=== PATIENT | male | born 1975 | race Caucasian/White ===

== ENCOUNTER 2016-07-11 15:42 | Inpatient (IN) | payer OTHER, MEDICARE ==
[~2016-07-11] VITALS: Ht 180.3 cm; Wt 88.6 kg
--- NOTE | 2016-07-11 15:54 | NUR ---
RECEIVED 41 YO MALE WITH HX OF DEPRESSION, BIOPOLAR AND OCD, C/O SUICIDAL IDEATION SINCE LAST FRIDAY. PT STATES HE ALMOST COMMITTED SUICIDE FRIDAY. PT'S PLAN IS TO OVERDOSE ON PILLS.
--- NOTE | 2016-07-11 16:17 | NUR ---
APPRECIATE TRIAGE NOTE. PT AMBULATORY TO ROOM 15. PT ALERT AD ORIENTED X3, CALM AND COOPERATIVE WITH WANDING, CHANGING, AND COLLECTION OF VALUABLES. BLOOD DRAWN AND SENT TO LAB.
[2016-07-11 16:25] LABS: ABSOLUTE BASOPHIL COUNT 0.1 /CUMM (0.0-0.2); ABSOLUTE EOSINOPHIL COUNT 0.2 /CUMM (0.0-0.7); ABSOLUTE GRANULOCYTE CT 7.2 /CUMM (1.4-6.5); ABSOLUTE LYMPH COUNT 1.6 /CUMM (1.2-3.4); ABSOLUTE MONOCYTE COUNT 0.8 /CUMM (0.10-0.60); BASOPHIL % 0.7 % (0.0-2.0); EOSINOPHIL % 2.5 % (0-5); GRANULOCYTE % 72.7 % (42.2-75.2); MEAN CORPUSCULAR HGB 19.4 PG (27.0-31.0); MEAN CORPUSCULAR HGB CONC 30.4 G/DL (33.0-37.0); MEAN CORPUSCULAR VOLUME 63.8 FL (80.0-94.0); MEAN PLATELET VOLUME 7.1 FL (7.4-10.4); PLATELET COUNT 268 /CUMM (130-400); RBC DISTRIBUTION WIDTH 19.1 % (11.5-14.5); RED BLOOD CELL CT 5.18 /CUMM (4.70-6.10)
[2016-07-11] MEDS ORDERED: DEPAKOTE ER500 M1 PO (16:36)
[2016-07-11] MEDS ORDERED: LEXAPRO5 M1 PO (16:36)
[2016-07-11] MEDS ORDERED: WELLBUTRIN XL150 M2 PO (16:36)
[2016-07-11] MEDS ORDERED: RISPERIDONE0.5 M1 PO (16:37)
--- NOTE | 2016-07-11 16:59 | ED PSYCHIATRIC COMPLAINT ---
History of Present Illness General Chief Complaint: Psychiatric Related Complaint Stated Complaint: SUICIDAL Source: patient Exam Limitations: no limitations Vital Signs & Intake/Output Vital Signs & Intake/Output Vital Signs Date Time Temp Pulse Resp B/P Pulse O2 O2 Flow FiO2 Ox Delivery Rate 07/11 1616 97.0 100 120/71 07/11 1549 97.1 116 18 125/75 97 Room Air Allergies Coded Allergies: almond (ANAPHYLAXIS 07/11/16) Uncoded Allergies: FRUITS (ANAPHYLAXIS- STONE FRUITS 07/11/16) Reconcile Medications Bupropion HCl (Wellbutrin XL) 150 MG TAB.ER.24H 1 TAB PO QAM MENTAL HEALTH ( Reported) Divalproex Sodium (Depakote ER) 500 MG TAB.ER.24H 2,000 MG PO QHS MENTAL HEALTH (Reported) Escitalopram Oxalate (Lexapro) 5 MG TABLET 1 TAB PO DAILY MENTAL HEALTH ( Reported) Risperidone 0.5 MG TABLET 1 TAB PO QPM MENTAL HEALTH (Reported) Triage Note: RECEIVED 41 YO MALE WITH HX OF DEPRESSION, BIOPOLAR AND OCD, C/O SUICIDAL IDEATION SINCE LAST FRIDAY. PT STATES HE ALMOST COMMITTED SUICIDE FRIDAY. PT'S PLAN IS TO OVERDOSE ON PILLS. Triage Nurses Notes Reviewed? yes HPI: Patient presents for evaluation of constant severe feelings of detachment towards his family that began number of weeks ago. Symptoms are getting worse and there is nothing that seems to make him feel better including the use of marijuana. He states that he planned to commit suicide on Friday by taking a handful of pills but did not actually go through with it. He continues to have suicide ideation but states he is rather ambivalent to this. Other than marijuana patient denies any other drug use or alcohol use. (VIRGIL HSIEH MD) Past History Travel History Traveled to [place] past 21 day No Medical History Any Pertinent Medical History? 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 No (VIRGIL HSIEH MD) Review of Systems Review of Systems Constitutional: Reports: no symptoms. EENTM: Reports: no symptoms. Respiratory: Reports: no symptoms. Cardiovascular: Reports: no symptoms. GI: Reports: no symptoms. Genitourinary: Reports: no symptoms. Musculoskeletal: Reports: no symptoms. Skin: Reports: no symptoms. Neurological/Psychological: Reports: see HPI. Hematologic/Endocrine: Reports: no symptoms. Immunologic/Allergic: Reports: no symptoms. All Other Systems: Reviewed and Negative (JORI GONZALEZ,VIRGIL Aguialr) Physical Exam Physical Exam General Appearance: SEE BELOW Neurological/Psychiatric: SEE BELOW Comments: Gen.: Well-nourished, well-developed, no acute respiratory distress. Head: Normocephalic, atraumatic. Eyes: Normal inspection bilaterally Ears: Normal inspection bilaterally Nose: Normal inspection Throat/mouth : Moist mucosa Neck: Supple, full range of motion, no goiter Heart: Regular rate and rhythm, no murmurs rubs or gallops Lungs: Clear to auscultation bilaterally with normal air entry Chest: Nontender Back: Normal range of motion Abdomen: Soft, nontender, nondistended, normal bowel sounds Extremities: Normal range of motion grossly, equal radial pulses, no cyanosis clubbing or edema Neurologic: Cranial nerves grossly intact, speech is clear Skin: warm and dry Psychiatric: Calm, cooperative, no apparent delusions or hallucinations, subdued affect SAD PERSONS Done? deferred to crisis (JORI GONZALEZ,VIRGIL Aguilar) Progress Differential Diagnosis: depression, bipolar disorder Plan of Care: Orders Procedure Date/time Status Regular Diet 07/12 B Active THYROID STIMULATING HORMONE 07/12 0700 Active LIPID PANEL 07/12 0700 Active GLYCOSYLATED HGB 07/12 0700 Active VITAMIN B12 07/12 0700 Active EKG 07/12 0700 Active Add-on Test (ER Only) 07/11 1950 Active Patient Data - inpatient psych 07/11 1928 Active Admit to inpatient psych 07/11 1928 Active ED CRISIS PSYCH CONSULT 07/11 1658 Active DEPAKOTE LEVEL 07/11 1617 Active URINE DRUGS OF ABUSE 07/11 1614 Complete ETHANOL 07/11 1614 Active COMPREHENSIVE METABOLIC PANEL 07/11 1614 Active CBC WITHOUT DIFFERENTIAL 07/11 1614 Complete Vital Signs 07/11 UNK Active Activity/Ambulation 07/11 UNK Active Current Medications Sig/Genie Start time Last Medication Dose Stop Time Status Admin Bupropion HCl 150 MG DAILY 07/12 1000 UNVr (Wellbutrin XL) Escitalopram Oxalate 5 MG DAILY 07/12 1000 UNVr (Lexapro) Divalproex Sodium 2,000 MG AT BEDTIME 07/11 2200 UNVr (Depakote ER) Risperidone 0.5 MG AT BEDTIME 07/11 220 UNVr (Risperidone) Laboratory Tests 07/11/16 1628: Urine Opiates Screen < 100.00, Methadone Screen 47, Barbiturate Screen < 60, Ur Phencyclidine Scrn < 6.00, Amphetamines Screen 466, U Benzodiazepines Scrn < 85, Urine Cocaine Screen < 50, Urine Cannabis Screen 40.80 07/11/16 1617: Anion Gap 12, Estimated GFR > 60, BUN/Creatinine Ratio 12.5, Glucose 94, Calcium 9.3, Total Bilirubin 0.4, AST 14 L, ALT 30, Alkaline Phosphatase 70, Total Protein 6.9, Albumin 3.7, Globulin 3.2, Albumin/Globulin Ratio 1.2, CBC w Diff NO MAN DIFF REQ, RBC 5.18, MCV 63.8 L, MCH 19.4 L, RDW 19.1 H, MPV 7.1 L, Gran % 72.7, Lymphocytes % 16.4 L, Monocytes % 7.7, Eosinophils % 2.5, Basophils % 0.7, Absolute Granulocytes 7.2 H, Absolute Lymphocytes 1.6, Absolute Monocytes 0.8 H, Absolute Eosinophils 0.2, Absolute Basophils 0.1, PUBS MCHC 30.4 L, Valproic Acid Pending, Serum Alcohol < 10.0 Comments: 07/11/2016 7:17:57 PM patient signed out to Dr. Mabry. (JORI GONZALEZ,VIRGIL Aguilar) Comments: To be admitted to [facility]. (MARIO ALBERTO MABRY MD) Departure Departure Disposition: STILL A PATIENT Condition: Stable Clinical Impression Primary Impression: Suicide ideation Referrals: TREVIN MOTTA DO (PCP/Family) Departure Forms: Customer Survey General Discharge Information (JORI GONZALEZ,VIRGIL Aguilar) Departure Time of Disposition: 1956 Psych Admission Note Psychiatric Admission: I have seen and evaluated HERNANDEZ HYDE. I have also reviewed all the pertinent lab results and diagnostic results. HERNANDEZ HYDE will be admitted to our inpatient Psychiatric unit for treatment and care. (MARIO ALBERTO MABRY MD)
--- NOTE | 2016-07-11 17:11 | NUR ---
DR. HSIEH TO BEDSIDE FOR EVAL.
--- NOTE | 2016-07-11 18:22 | ED PSY CRISIS COLLATERAL NOTE ---
Collateral Note Collateral Note Family/Inform/Yamila Contacts: This clinician received a call from [facility] outpatient DRAWING TENDER Fiona Welch. She reported the Pt is has very risky behavior and attempted suicide on Friday night by taking pills and then washing the pills down with cough syrup. She reports the Pt called with active suicide ideation. She reports the Pt had protective factor of his children in the past and recently reports being detached from his family. She reports the Pt has a current stressor of in the process of a divorce. She reports the Pt abuses Cannabis and having a diagnoses of Bipolar.
--- NOTE | 2016-07-11 19:18 | ED PSYCH CRISIS CONSULTATION ---
Crisis Consult Basic Assessment Date of Consult: 07/11/16 Responsible Person/Accompanied By: Self Insurance Authorization: Insurance #1: Insurance name: MEDICARE A Phone number: Policy number: [id number] Group number: Authorization number: ED Provider: Patient's ED Provider: VIRGIL HSIEH MD Primary Care Physician: Patient's PCP: TREVIN MOTTA DO PCP's Current Psychiatrist: Dr. Saira Tobias Chief Complaint: Psychiatric Related Complaint Patient's Quote: " I want to kill myself" " I will take pills" Present Illness: Pt is a 41 male going through a divorce presents to the emergency room after talking with his COMPLIANCE TESTING ANALYST Fiona Welch at [facility]. He informed the COMPLIANCE TESTING ANALYST he attempted suicide on Friday by taking pills and drinking cough syrup. He reported spitting out the pills. He then came into the emergency room and reports feeling depressed, sad and hopeless. He reports his depression increased since March of 2016. Pt reports having suicidal ideation with a plan to take pills. He reports regretting not being able to go through with previous attempt on Friday. Pt reports he fantasies of dying and the thought of leaving this world. He reports writing letters to his children and unable to provide them to his children. Pt has a history of abusing Cannabis and reports last use 2 weeks ago. Patient's Address: [address] [place] [address] Other Phone Number: Who Do You Live With? Father Family/Informants Interviewed: COMPLIANCE TESTING ANALYST Fiona Welch Allergies - Coded Allergies: almond (ANAPHYLAXIS 07/11/16) Uncoded Allergies: FRUITS (ANAPHYLAXIS- STONE FRUITS 07/11/16) Current Medications - Scheduled Medications Bupropion HCl (Wellbutrin XL) 150 MG TAB.ER.24H 1 TAB PO QAM MENTAL HEALTH #30 (Reported) Entered as Reported by LATONYA SNEED on 07/11/16 1636 Divalproex Sodium (Depakote ER) 500 MG TAB.ER.24H 2,000 MG PO QHS MENTAL HEALTH #120 (Reported) Entered as Reported by LATONYA SNEED on 07/11/16 1636 Escitalopram Oxalate (Lexapro) 5 MG TABLET 1 TAB PO DAILY MENTAL HEALTH #30 ( Reported) Entered as Reported by LATONYA SNEED on 07/11/16 1636 Risperidone 0.5 MG TABLET 1 TAB PO QPM MENTAL HEALTH #30 (Reported) Entered as Reported by LATONYA SNEED on 07/11/16 1637 Laboratory Results: Laboratory Tests 07/11/16 1628: Urine Opiates Screen < 100.00, Methadone Screen 47, Barbiturate Screen < 60, Ur Phencyclidine Scrn < 6.00, Amphetamines Screen 466, U Benzodiazepines Scrn < 85, Urine Cocaine Screen < 50, Urine Cannabis Screen 40.80 07/11/16 1617: Anion Gap 12, Estimated GFR > 60, BUN/Creatinine Ratio 12.5, Glucose 94, Calcium 9.3, Total Bilirubin 0.4, AST 14 L, ALT 30, Alkaline Phosphatase 70, Total Protein 6.9, Albumin 3.7, Globulin 3.2, Albumin/Globulin Ratio 1.2, CBC w Diff NO MAN DIFF REQ, RBC 5.18, MCV 63.8 L, MCH 19.4 L, RDW 19.1 H, MPV 7.1 L, Gran % 72.7, Lymphocytes % 16.4 L, Monocytes % 7.7, Eosinophils % 2.5, Basophils % 0.7, Absolute Granulocytes 7.2 H, Absolute Lymphocytes 1.6, Absolute Monocytes 0.8 H, Absolute Eosinophils 0.2, Absolute Basophils 0.1, PUBS MCHC 30.4 L, Serum Alcohol < 10.0 Past History Past Medical History Neurological: NONE EENT: NONE Cardiovascular: NONE Respiratory: NONE Gastrointestinal: NONE Hepatic: NONE Musculoskeletal: NON CANCEROUS 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 Psychiatric Treatment History Psych Treatment Psychiatric Treatment Yes Inpatient Treatment Yes Outpatient Treatment Yes Location of Treatment [facility] Outpatient Reason for Treatment Bipolar Dates of Treatment curresntly treated in outptient . Response to Treatment poor Diagnosis by History: Bipolar Disorder Substance Use/Abuse History Drug Use/Abuse Substances Used/Abused Yes Substance Used/Abused Marijuana First Use 17 years old Last Used 2 weeks ago How much used/taken a few hits. How often daily. For how long 3 years Route of use smoking Substance Abuse Treatment Substance Abuse Treatment Past Substance Abuse [place] No Inpatient Treatment No Outpatient Treatment No Comments: Pt presents to the emergency room depressed with suicidal ideation with a plan to take pills and overdose. Current Mental Status Mental Status Orientation: Person, Place, Situation Affect: Depressed, Hopeless, Lonely, Sad Speech: WNL Neuro-vegetative: Appetite Decreased, Energy Decreased Appearance Appearance- Dress/Hygiene: Dressed in hospital clothing. Behaviors Thought Process: WNL Thought Content: WNL Memory: WNL Insight: Poor SI/HI Risk Assessment Past Suicidal Ideation/Attempts Yes Current Suicidal Ideation/Att Yes Past Homicidal Ideation/Att: No Current Homicidal Ideation/Attempts No Degree of Intent: Made Preparations, Plan, States Intent Danger To: Self Gravely Disabled: Lack of Insight, Poor Impulse Control, Poor Judgment Risk Factors: SA/MH hospitalized, substance abuse, poor impulse control, lack of outcome concern, male Lethality Ratin PTSD Checklist PTSD Score: PTSD Score: Response Value Disturbing memories,thoughts,images of stressful experience? Not at all 1 Disturbing dreams of stressful experience from past? Not at all 1 Suddenly acting/feeling as if reliving stressful experience? Not at all 1 Total 3 PTSD Done? patient declined ED Management Sitter: Yes Restraints: No DSM5/PS Stressors/Medical Prob Diagnosis' (DSM 5, Stressors, Medical): Bipolar Disorder, current episode depressed F31.32 Current GAF: 23 Comments: Pt presents to the emergency room depressed, hopeless and sad with a plan to overdose by taking pills. Departure Disposition Psych Medical Clearance Date: 07/11/16 Medically Cleared at: 1720 Time Started: 1720 Time Ended: 1820 Psychiatrist Consulted: Dr. Saira Tobias Date Disposition Established: 07/11/16 Time Disposition Established: 1840 Plan for Disposition - Modality: Inpatient Psychiatry Facility: [facility] Follow-up Appt Date: 07/11/16 Rationale for Disposition: Pt presents to the emergency room depressed, sad, hopeless with suicide ideation plan to overdose with pills, consulted with Dr. Saira Tobias for the Pt to be treated inpatient at [facility]. Type of IP Admission: Voluntary Referrals TREVIN MOTTA DO (PCP/Family)
--- NOTE | 2016-07-11 19:34 | IP CRISIS DIAG ASSESS PSYCH ---
See Addendum Diagnostic Assessment Basic Assessment Insurance Authorization: Insurance #1: Insurance name: MEDICARE A Phone number: Policy number: [id number] Group number: Authorization number: Primary Care Physician: Patient's PCP: TREVIN MOTTA DO PCP's Patient's Quote: " I want to kill myself" " I will takepills" Present Illness: Pt is a 41 male going through a divorce presents to the emergency room after talking with his RELIABILITY TECHNICIAN Fiona Welch at [facility]. He informed the RELIABILITY TECHNICIAN he attempted suicide on Friday by taking pills and drinking cough syrup. He reported spitting out the pills. He then came into the emergency room and reports feeling depressed, sad and hopeless. He reports his depression increased since March of 2016. Pt reports having suicidal ideation with a plan to take pills. He reports regretting not being able to go through with previous attempt on Friday. Pt reports he fantasies of dying and the thought of leaving this world. He reports writing letters to his children and unable to provide them to his children. Pt has a history of abusing Cannabis and reports last use 2 weeks ago. Patient's Address: [address] [place] [address] Other Phone Number: Who Do You Live With? Father Feel Safe Where You Live? Yes Feel Safe in Your Relationship Yes Marital Status: going through a divorce Do You Have Children? Yes Ages? 4,5,14 and 15 Primary Language? Azerbaijani Language(s) Spoken At Home: Azerbaijani Family/Informants Interviewed: RELIABILITY TECHNICIAN Fiona Welch Allergies - Coded Allergies: almond (ANAPHYLAXIS 07/11/16) Uncoded Allergies: FRUITS (ANAPHYLAXIS- STONE FRUITS 07/11/16) Current Medications - Scheduled Medications Bupropion HCl (Wellbutrin XL) 150 MG TAB.ER.24H 1 TAB PO QAM MENTAL HEALTH #30 (Reported) Entered as Reported by LATONYA SNEED on 07/11/16 1636 Divalproex Sodium (Depakote ER) 500 MG TAB.ER.24H 2,000 MG PO QHS MENTAL HEALTH #120 (Reported) Entered as Reported by LATONYA SNEED on 07/11/16 1636 Escitalopram Oxalate (Lexapro) 5 MG TABLET 1 TAB PO DAILY MENTAL HEALTH #30 ( Reported) Entered as Reported by LATONYA SNEED on 07/11/16 1636 Risperidone 0.5 MG TABLET 1 TAB PO QPM MENTAL HEALTH #30 (Reported) Entered as Reported by LATONYA SNEED on 07/11/16 1637 Lab Results: Laboratory Tests 07/11/16 1628: Urine Opiates Screen < 100.00, Methadone Screen 47, Barbiturate Screen < 60, Ur Phencyclidine Scrn < 6.00, Amphetamines Screen 466, U Benzodiazepines Scrn < 85, Urine Cocaine Screen < 50, Urine Cannabis Screen 40.80 07/11/16 1617: Anion Gap 12, Estimated GFR > 60, BUN/Creatinine Ratio 12.5, Glucose 94, Calcium 9.3, Total Bilirubin 0.4, AST 14 L, ALT 30, Alkaline Phosphatase 70, Total Protein 6.9, Albumin 3.7, Globulin 3.2, Albumin/Globulin Ratio 1.2, CBC w Diff NO MAN DIFF REQ, RBC 5.18, MCV 63.8 L, MCH 19.4 L, RDW 19.1 H, MPV 7.1 L, Gran % 72.7, Lymphocytes % 16.4 L, Monocytes % 7.7, Eosinophils % 2.5, Basophils % 0.7, Absolute Granulocytes 7.2 H, Absolute Lymphocytes 1.6, Absolute Monocytes 0.8 H, Absolute Eosinophils 0.2, Absolute Basophils 0.1, PUBS MCHC 30.4 L, Serum Alcohol < 10.0 Toxicology Screen Completed? Yes Results: negative Past History Past Medical History Medical History: Psychiatric history Abuse/Trauma History Trauma History/Current Trauma: emotional (going through a a divorce) Patient's Age at Time of Trauma: 41 History of Trauma/Abuse Treatment? Yes Abuse/Trauma Treatment: None Legal History Current Legal Status: none Have you ever been arrested? No Number of Arrests: [address] Dates: none Physical Integration Practitioner none Psychosocial History Strengths/Capabilities: Pt seeking treatment. Psychiatric Treatment History Psych Treatment Psychiatric Treatment Yes Inpatient Treatment Yes Outpatient Treatment Yes Location of Treatment [facility] Outpatient Reason for Treatment Bipolar Disorder [facility]ates [facility] Response to Treatment poor Diagnosis by History: Bipolar Disorder Risk Factors: SA/MH hospitalized, substance abuse, poor impulse control, lack of outcome concern, male Substance Use/Abuse History Drug Use/Abuse minimum 12mo Hx Substances Used/Abused Yes Substance Used/Abused Marijuana First Use 17 years old Last Used 2 weeks ago How much used/taken a few hits. How often daily. For how long 3 years Route of use smoking Substance Abuse Treatment Substance Abuse Treatment Past Substance Abuse [place] No Inpatient Treatment No Outpatient Treatment No Sexual History Sexually Active Yes # of partners 1 Sexual Orientation Heterosexual Use of Protection No Sexual Concerns: None Education History Highest Level of Education: high school/GED Preferred Learning Style: auditory Current Mental Status Mental Status Orientation: Person, Place, Situation Affect: Depressed, Hopeless, Lonely, Sad Speech: WNL Neuro-vegetative: Appetite Decreased, Energy Decreased Appearance Appearance- Dress/Hygiene: Dressed in hospital clothing. Behaviors Thought Process: WNL Thought Content: WNL Memory: WNL Insight: Poor SI/HI Risk Assessment - Minimum 6mo History- Past Suicidal Ideation/Attempts Yes Current Suicidal Ideation/Att Yes Past Homicidal Ideation/Att: No Current Homicidal Ideation/Attempts No Degree of Intent: Made Preparations, Plan, States Intent Danger To: Self Gravely Disabled: Lack of Insight, Poor Impulse Control, Poor Judgment Risk Factors: SA/MH hospitalized, substance abuse, poor impulse control, lack of outcome concern, male Lethality Ratin Needs/Init [place] Plan/Goals: Individual counseling, group counseling, medication management, stabilization, and discharge planning. AUDIT-C Questionnaire: AUDIT-C Questionnaire: Response Value ETOH use in the past year Monthly or less 1 # drinks typical/day Doesn't Drink 0 6 or > drinks per occasion Less than monthly 1 Total 2 DSM5/PS Stressors/Medical Prob Diagnosis' (DSM 5, Stressors, Medical): Bipolar Disorder, current episode depressed F31.32 Current GAF: 23 Comments: Pt presents to the emergency room depressed, hopeless and sad with a plan to overdose by taking pills.
--- NOTE | 2016-07-11 20:33 | NUR ---
PT WILL BE ADMITTED TO CPS PER CRISIS.
--- NOTE | 2016-07-11 21:05 | SOCIAL WORKER SOCIAL HX PSYCH ---
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 He informed the MAINFRAME SYSTEMS ADMINISTRATOR he attempted suicide on Friday by taking pills and drinking cough syrup. He reported spitting out the pills. He then came into the emergency room and reports feeling depressed, sad and hopeless. He reports his depression increased since March of 2016. Pt reports having suicidal ideation with a plan to take pills. He reports regretting not being able to go through with previous attempt on Friday. Pt reports he fantasies of dying and the thought of leaving this world. He reports writing letters to his children and unable to provide them to his children. Pt has a history of abusing Cannabis and reports last use 2 weeks ago. Primary Language? [place] Language(s) Spoken At Home: [place] Living Situation Rents or Owns Home? rents Feel Safe Where You Are Living Yes Feel Safe in Relationships? Yes Allergies - Coded Allergies: almond (ANAPHYLAXIS 07/11/16) Uncoded Allergies: FRUITS (ANAPHYLAXIS- STONE FRUITS 07/11/16) Current Medications - Scheduled Medications Bupropion HCl (Wellbutrin XL) 150 MG TAB.ER.24H 1 TAB PO QAM MENTAL HEALTH #30 (Reported) Entered as Reported by LATONYA SNEED on 07/11/16 1636 Divalproex Sodium (Depakote ER) 500 MG TAB.ER.24H 2,000 MG PO QHS MENTAL HEALTH #120 (Reported) Entered as Reported by LATONYA SNEED on 07/11/16 1636 Escitalopram Oxalate (Lexapro) 5 MG TABLET 1 TAB PO DAILY MENTAL HEALTH #30 ( Reported) Entered as Reported by LATONYA SNEED on 07/11/16 1636 Risperidone 0.5 MG TABLET 1 TAB PO QPM MENTAL HEALTH #30 (Reported) Entered as Reported by LATONYA SNEED on 07/11/16 1637 Past History Past Medical History Neurological: NONE EENT: NONE Cardiovascular: NONE Respiratory: NONE Gastrointestinal: NONE Hepatic: NONE Musculoskeletal: 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 No Mother's Age (Current/): 65 Relationship w/Mother: " Good" Father's Age (Current/): 64 Relationship w/Father: "Great" Any Sibling(s)? Yes Sibling's Gender(s)/Age(s): male Sibling 1:, female Sibling 2:, female Sibling 3: Relationship w/Sibling(s): " Very close." Relationship w/Friends: " I don't hang out too much with friends anymore, spend most of my time with my brother." Abuse/Trauma History Trauma History/Current Trauma: emotional (going through a a divorce) Patient's Age at Time of Trauma: 41 History of Trauma/Abuse Treatment? Yes Abuse/Trauma Treatment: None Legal History Current Legal Status: none Pending Court Dates: None Have you ever been arrested No Number of Arrests: 0 Hx of Juvenile Legal Charges? No Hx of Adult Legal Charges? No Internal Communications Specialist none Psychosocial History Primary Support System: Strengths/Capabilities: Pt seeking treatment. Last Physical: 1 year ago History of Seizures? No History of Blackouts? No ADL Limitations: None noted [place]/Social/Peer Relations n/a Meaningful Activities: enjoys watching movies, spending time with kids, Childhood Baptist: no yarsani stated Current Sikh Affiliation: no yarsani stated Is Spirituality Important to You? No Are There Developmental Issues? No Milestones Achieved: fine motor, gross motor Psychiatric Treatment History Psych Treatment Inpatient Treatment Yes Outpatient Treatment Yes Location of Treatment [facility] Outpatient Reason for Treatment Bipolar Disorder Dates of Treatment currently treated in outptient . Response to Treatment poor Diagnosis: Bipolar Disorder Risk Factors: SA/MH hospitalized, substance abuse, poor impulse control, lack of outcome concern, male Substance Use/Abuse History Drug Use/Abuse Substance Used/Abused Marijuana First Use 17 years old Last Used 2 weeks ago How much used/taken a few hits. How often daily. For how long 3 years Route of use smoking Have Had Periods of Sobriety? No Relapse History? No Have You Ever Attended AA? No Do You Attend AA Currently? No Do You Have a Sponsor? No Substance Abuse Treatment Substance Abuse Treatment Inpatient Treatment No Outpatient Treatment No Sexual History Sexually Active Yes # of partners 1 Sexual Orientation Heterosexual Use of Protection No Sexual Concerns: None Education History Highest Level of Education: high school/GED Preferred Learning Style: auditory HX of Learning Difficulties: None reported Barriers to Learning: None reported Special Communication Needs: None reported Employment History Employment Disability Not in Labor Force: Disabled No. of Jobs in Last 5 Years: 2 History Have You Been in The ? No Current Mental Status Mental Status Orientation: Person, Place, Situation Affect: Depressed, Hopeless, Lonely, Sad Speech: WNL Neuro-vegetative: Appetite Decreased, Energy Decreased Appearance Appearance- Dress/Hygiene: Dressed in hospital clothing. Behaviors Thought Process: WNL Thought Content: WNL Memory: WNL Insight: Poor SI/HI Risk Assessment Past Suicidal Ideation/Attempts Yes Current Suicidal Ideation/Att Yes Past Homicidal Ideation/Att: No Current Homicidal Ideation/Attempts No Degree of Intent: Made Preparations, Plan, States Intent Danger To: Self Gravely Disabled: Lack of Insight, Poor Impulse Control, Poor Judgment Lethality Ratin - Conclusion and Recommendations for treatment - and discharge planning
--- NOTE | 2016-07-11 22:39 | NUR ---
PT MEDICATED PER EMAR. PT OFFERS NO COMPLAINTS AT THIS TIME. INFORMED WAITING PERFORMED AT THIS TIME, VERBALIZES UNDERSTANDING.
--- NOTE | 2016-07-11 23:38 | NUR ---
REPORT GIVEN TO ROSELIA BENNETT. SECURITY CALLED TO ESCORT PT AT THIS TIME.
[2016-07-11 23:58] VITALS: BP 124/58
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
--- NOTE | 2016-07-12 05:54 | NUR ---
PT ADMITTED TO UNIT AT 2345. PT APPEARED TO SLEEP AFTER DR Jeff LOVE H AND Idalmis CHAMBERLAIN. PT WOULD LIKE SOMETHING FOR DRY MOUTH.
--- NOTE | 2016-07-12 06:55 | History & Physical ---
General Information and HPI MD Statement: I have seen and personally examined HERNANDEZ HYDE and documented this H&P. The patient is a 41 year old M who presented with a patient stated chief complaint of [medical evaluation]. Source of Information: patient Exam Limitations: no limitations History of Present Illness: Patient came to ER for constant severe feelings of detachment towards his family , Symptoms are getting worse, no relieving factors, excessive use of marijuana, he had suicidal ideation and attempt attempted by taking Xanax, Seroquel, codeine but then spitting it out. 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 He was being evaluated for anemia with colonoscopy and upper GI scope he in March 2015 when found to have multiple polyps eventually pathology and genetic testing was positive and was referred to [place] and [place] for surgical evaluation. Patient has chronic iron deficiency anemia. He denies chest pain, shortness of breath, abdominal pain, URI symptoms, headache, nausea, vomiting, diarrhea, blood in vomiting, bloody diarrhea, neurological weakness, loss of consciousness, palpitations. Patient endorses some dyspnea on exertion and tiredness chronically secondary to his iron deficiency anemia. Patient follows with Nia Motta DO as PCP.. Allergies/Medications Allergies: Coded Allergies: almond (ANAPHYLAXIS 07/11/16) Uncoded Allergies: FRUITS (ANAPHYLAXIS- STONE FRUITS 07/11/16) Home Med list Bupropion HCl (Wellbutrin XL) 150 MG TAB.ER.24H 1 TAB PO QAM MENTAL HEALTH ( Reported) Divalproex Sodium (Depakote ER) 500 MG TAB.ER.24H 2,000 MG PO QHS MENTAL HEALTH (Reported) Escitalopram Oxalate (Lexapro) 5 MG TABLET 1 TAB PO DAILY MENTAL HEALTH ( Reported) Risperidone 0.5 MG TABLET 1 TAB PO QPM MENTAL HEALTH (Reported) Compliance With Home Meds: GOOD Past History Travel History Traveled to [place] past 21 day No Medical History Neurological: NONE EENT: NONE Cardiovascular: NONE Respiratory: NONE Gastrointestinal: juvenile polyposis, 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 Home Who Do You Live With? self Services at Home: None Primary Language: Danish Smoking Status: Former Smoker ETOH Use: occasional use Illicit Drug Use: marijuana Functional Ability ADLs Independent: dressing, eating, toileting, bathing. Ambulation: independent IADLs Independent: shopping, housework, finances, food prep, telephone, transportation , medication admin. Sexual History Sexually Active No Sexual Orientation Heterosexual Employment History Employment Disability Review of Systems Review of Systems Constitutional: Reports: no symptoms. EENTM: Reports: no symptoms. Cardiovascular: Reports: no symptoms. Respiratory: Reports: no symptoms. GI: Reports: no symptoms. Genitourinary: Reports: no symptoms. Musculoskeletal: Reports: no symptoms. Skin: Reports: no symptoms. Hematologic/Endocrine: Reports: see HPI, other. Exam & Diagnostic Data Last 24 Hrs of Vital Signs/I&O Vital Signs Date Time Temp Pulse Resp B/P Pulse O2 O2 Flow FiO2 Ox Delivery Rate 07/11 2358 97.8 98 124/58 07/11 2238 97.4 94 18 118/69 98 Room Air Room Air 07/11 1616 97.0 100 120/71 07/11 1549 97.1 116 18 125/75 97 Room Air Intake & Output 07/11 1600 07/12 0000 07/12 0800 Intake Total Output Total Balance Patient 90.718 kg 88.621 kg 88.621 kg Weight Physical Exam General Appearance Alert, Oriented X3, Cooperative, No Acute Distress Skin No Rashes, No Breakdown, No Significant Lesion HEENT Atraumatic, PERRLA, EOMI, Mucous Membr. moist/pink Neck Supple, No JVD, No thryomegaly, +2 Carotid Pulse wo Bruit, No LAD Lymphatic Cervical nl Cardiovascular Regular Rate, Normal S1, Normal S2, No Murmurs Lungs Clear to Auscultation, Normal Air Movement Abdomen Normal Bowel Sounds, Soft, No Tenderness, No Hepatospenomegaly, No Masses Neurological Exam Findings: Normal Gait, Normal Speech, Strength at 5/5 X4 Ext, Normal Tone, Sensation Intact, Cranial Nerves 3-12 NL, Reflexes 2+ Cranial Nerves II through XII: Intact Extremities No Clubbing, No Cyanosis, No Edema, Normal Pulses, No Tenderness/ Swelling Vascular Normal Pulses Last 24 Hrs of Labs/[place]: Laboratory Tests 07/12/16 0604: Hemoglobin A1c Pending, Triglycerides Pending, Cholesterol Pending, LDL Cholesterol, Calc Pending, HDL Cholesterol Pending, Cholesterol/HDL Ratio Pending, Vitamin B12 Pending, TSH Pending 07/11/16 2000: Valproic Acid Cancelled 07/11/16 1628: Urine Opiates Screen < 100.00, Methadone Screen 47, Barbiturate Screen < 60, Ur Phencyclidine Scrn < 6.00, Amphetamines Screen 466, U Benzodiazepines Scrn < 85, Urine Cocaine Screen < 50, Urine Cannabis Screen 40.80 07/11/16 1617: Anion Gap 12, Estimated GFR > 60, BUN/Creatinine Ratio 12.5, Glucose 94, Calcium 9.3, Total Bilirubin 0.4, AST 14 L, ALT 30, Alkaline Phosphatase 70, Total Protein 6.9, Albumin 3.7, Globulin 3.2, Albumin/Globulin Ratio 1.2, CBC w Diff NO MAN DIFF REQ, RBC 5.18, MCV 63.8 L, MCH 19.4 L, RDW 19.1 H, MPV 7.1 L, Gran % 72.7, Lymphocytes % 16.4 L, Monocytes % 7.7, Eosinophils % 2.5, Basophils % 0.7, Absolute Granulocytes 7.2 H, Absolute Lymphocytes 1.6, Absolute Monocytes 0.8 H, Absolute Eosinophils 0.2, Absolute Basophils 0.1, PUBS MCHC 30.4 L, Valproic Acid 60.5, Serum Alcohol < 10.0 Assessment/Plan Assessment: #1 suicidal ideation and depression: Agree with psychiatry plan #2 Recently diagnosed juvenile polyposis, under evaluation for surgery. Patient should follow-up with [place] or [place] gastrointestinal surgeon as scheduled. #3 anemia : Likely secondary to iron deficiency with chronic microscopic GI blood loss. As Ranked By This Provider Problem List: 1. Suicide ideation 2. Juvenile polyposis syndrome 3. Anemia Miscellaneous Miscellaneous Documentation Attending Case Discussed With: JACKSON GONZALEZ,HUGH Arizmendi Primary Care Physician: NIA MOTTA DO Patient sees these Specialists [facility] and gastrointestinal surgery [facility] Level of Patient Care: BRANDEE Lin
--- NOTE | 2016-07-12 07:07 | Admission Certification ---
Admission Certification Certification Statement - As attending physician, I certify that at the time of - admission, based on clinical presentation, severity of - symptoms, need for further diagnostic testing and - therapeutic interventions, and risk of adverse outcomes - without in-hospital treatment, in my clinical assessment, - this patient requires an acute hospital stay for a minimum - of two nights or longer. I have also considered psychsocial - factors such as support system, advanced age, financial - issues, cognitive issues, and failed out-patient treatments, - past re-admission history, safety of patient, and lack of - compliance as applicable. Specific rationale supporting this admission is: Suicidal ideation
[2016-07-12 07:51] VITALS: BP 131/65
[2016-07-12 12:30] VITALS: BP 119/55
--- NOTE | 2016-07-12 15:01 | NUR ---
PT IS COMPLIANT AND COOPERATIVE. MOOD IS STABLE WITH A CONSTRICTED AFFECT. PT DENIES SI AT THIS TIME, NO COMPLAINTS OFFERED. PT IS PRESENT IN THE COMMUNITY AND INTERACTING WELL WITH PEERS AND STAFF. PT IS ATTENDING GROUPS. VITALS ARE STABLE, APPETITE IS GOOD.
[2016-07-12 15:38] VITALS: BP 119/68
--- NOTE | 2016-07-12 15:50 | SOCIAL WORKER TX PLAN PSYCH ---
Treatment Plan - Please Document: - Evidence that there is ongoing collaboration between - the patient and the interdisciplinary team, - including the patient's active participation and - responsibility for engaging in the treatment regimen, - and that the treatment plan is individualized and - relevant to the patient's conditions. - Treatment plan should reflect documentation indicating - that all active therapeutic efforts are included. Strengths/Capabilities: Pt seeking treatment. Patient Identified Trmt Goals: "I think I need a different mood stabilizer" Discharge Plan: Care [facility] and return to parents home Problem/Goals #1 Problem #1: depression Goal (Short Term): Patient will have decreased thoughts of suicide as evidenced by self report. Goal (Chcf): Patient will be able to verbalize hope for the future and resources to help make life more meaningful Interventions: Patient will be offered medication management with the NAIL MAKING MACHINE SETTER/ Pyschiatrist, patient will be offered groups on coping skills, symptom management, relaxation, goals group. Emergency Vehicle Driver will assess suicidality, discuss goals for the future, hold family meeting and help assist with aftercare. DSM5/PS Stressors/Medical Prob Diagnosis' (DSM 5, Stressors, Medical): Bipolar Disorder, current episode depressed F31.32 Current GAF: 23 Treatment Team - Responsibilities of members of the treatment team include: - Medication Management- MD or NAIL MAKING MACHINE SETTER - Medication Administration and Monitoring- Nurse - Group Therapy- Occupational Therapist - 1:1 Therapy,Disch Planning,family involvement-Emergency Vehicle Driver
--- NOTE | 2016-07-12 15:50 | SOCIAL WORKER PROG NOTE PSYCH ---
Social Work Progress Note Progress Note Lucien has spent the day up and attending groups. Reports he is feeling a little better. Talked about having his first hypomanic episode a couple of weeks ago. He said he had never experienced that before, but has dealt with serious bouts of depression. He has been in outpatient treatment with [facility] for the past few years. He is recently going through a second divorce, by his choice. He is currently living at his parent's home in [place]. He talked about some of the stressors related to the seperation, such as not seeing his kids as often and just learning that his now has a boyfriend. He had a difficult time with the idea of her having a boyfriend and described his feelings as "jealous", although he reminds himself that he is the one that wanted the divorce. He has some serious health concerns as well right now. 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 He has been going to various doctors and will eventually need it operated on. He is not in any pain, but complains of bad acid reflux at times. He is not employed and has been receiving disability benefits. He is comfortable and thankful to have his parents support at this time and he feels it is a blessing that he is staying with them. If it wasn't for his parents he feel he may have gone through with taking the overdose of pills. He also stated that he was afraid that if he failed the attempt he would end up with some other serious medical complication that he would have to live with. He put the pills in his mouth to overdose, but then panicked and changed his mind. He admitted to writing letters to his children about his . He has the letters a home. He talked about possibly saving the letters. I asked what his thoughts were about that? He said that in case he ever went through with it again. He is scared that his depression and symptoms are worsening and that he is increasing the likelihood that he will act on his thoughts. He said that his depression this time was so bad that he was feeling very detached from people, the world and felt almost "alien". He couldn 't bare to continue living his life feeling this way. He is hopeful that a med change would be beneficial and mentioned possibly wanting to try [facility]. He is open to having his parents in for a family meeting and signed a release for them. He is also open to going to IOP, but due to living in [place] he is hoping to find something close to there. He really likes working with Fiona Abdi APRN and would love to continue with her after [facility]. I called Lucien's Mother and scheduled a family meeting for 3pm on Friday.
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
[2016-07-12 19:57] VITALS: BP 145/77
--- NOTE | 2016-07-12 22:05 | NUR ---
Pt is out in the community mood is stable affect is in full range, compliant and cooperative with the staff. Vital signs are stable c/o no pain appetite is good. Will continue to monitor the pt overnight.
[2016-07-13 07:33] VITALS: BP 141/74
[2016-07-13 12:08] VITALS: BP 119/65
--- NOTE | 2016-07-13 12:57 | NUR ---
PT WAS VISIBLE IN THE MILIEU TODAY. HIS GOAL WAS TO GET THE MOST OUT OF TREATMENT,PT SHARED IN PLANNING MEETING THAT HE IS TIRED OF COMING TO THESE PLACES, AND IN THE PAST HE DOES EVERYTHING HE CAN JUST TO GET DISCHARGED AND NOT TAKE CONTROL OF HIS TREATMENT. THIS TIME HE REALLY WANTS TO TRY AND GET EVERYTHING HE CAN OUT OF IT. PT HAS BEEN GOING TO GROUPS, AND PARTICIPATING. HE DENIES THOUGHTS OF HURTING SELF WHEN ASKED.
[2016-07-13 15:32] VITALS: BP 125/64
--- NOTE | 2016-07-13 18:20 | NUR ---
PT IS IN THE MILIEU SOME OF THE EVENING. HE HAS SOME INTERACTIONS WITH PEERS, AND HAS BEEN COOPERATIVE WITH STAFF DIRECTION. HE IS PLEASANT THROUGHOUT THE EVENING AND DENIES THOUGHTS TO HURT HIMSELF WHEN ASKED.
[2016-07-13 19:05] VITALS: BP 131/75
--- NOTE | 2016-07-13 19:15 | CP SOUTH PROGRESS NOTE PSYCH ---
Psych (Inpt) Progress Note Progress Note I reviewing [facility] electronic health record, reviewed Dr. Craig admission note of yesterday Jennifer Paredes RN gave a verbal report on [facility] progress in the past 24 hours. I interviewed the patient. Lucien was pleasant and seemed in good spirits, smiled appropriately He was alert, oriented, and coherent His speech was normal, not slurred/not pressured, Lucien showed good eye contact, normal psychomotor activity, no abnormal movements Minimal thoughts of suicide, no though disorder, and no delusions I reviewed pharmacological options with Lucien, he said he is happy with the current regimen that he is on, We agreed on the following pharmacological plan: Continue same medications as prescribed I will re-evaluate the patients symptoms, progress, and any side effects tomorrow
--- NOTE | 2016-07-14 06:00 | NUR ---
PT WAS UP AT 0530. "I HAD 3 BLOODY NOSES IN THE NIGHT".
[2016-07-14 07:45] VITALS: BP 131/56
--- NOTE | 2016-07-14 09:45 | CP SOUTH PROGRESS NOTE PSYCH ---
Psych (Inpt) Progress Note Progress Note I reviewed the nurses notes from the past 24 hours. Lucien has not had any thoughts of suicide the past 24 hours. Today, Friday07/14/2016, Lucien continues to be calm and pleasant. He seemed to be in good spirits, smiled appropriately, feels he is doing very well and getting close to discharge He was alert, oriented, and coherent. His speech was normal, not slurred/not pressured, Lucien showed good eye contact, normal psychomotor activity, no abnormal movements. No thoughts of suicide, no though disorder, and no delusions I reviewed pharmacological options with Lucien, he said he is happy with the current regimen that he is on; we agreed on the following pharmacological plan: Continue same medications as prescribed Lucien will re-evaluated tomorrow by his regular treatment team
[2016-07-14 11:54] VITALS: BP 113/63
--- NOTE | 2016-07-14 13:18 | NUR ---
OUT IN COMMUNITY INTERACTS WELL WITH PEERS AND STAFF. MOOD IS STABLE, FULL RANGE OF AFFECT. DENIES THOUGHTS OF SELF HARM WHEN ASKED.
[2016-07-14 15:55] VITALS: BP 121/59
[2016-07-14 20:09] VITALS: BP 127/58
--- NOTE | 2016-07-14 23:29 | NUR ---
PT WAS VISITED BY HIS , WHOM HE IS FROM, ON EVENINGS. THAT VISIT WENT WELL ACCORDING TO THE PATIENT. THE PATIENT DID MAKE A LIST OF QUESTIONS AND CONCERNS HE HAD FOR THE PSYCHIATRIST. HE APPEARS BRIGHTER. P T IS -SI.
--- NOTE | 2016-07-15 06:07 | NUR ---
PT APPEARED TO SLEEP WELL.
[2016-07-15 08:26] VITALS: BP 117/64
--- NOTE | 2016-07-15 12:04 | SOCIAL WORKER PROG NOTE PSYCH ---
Social Work Progress Note Progress Note Faxed referral to Care in [place]. Lucien, his parents, Dominik Titus APRN and I met for a family meeting this afternoon. Dominik Titus APRN discussed [place] and provided the family and patient some information about the medication. Lucien is feeling alot better. Denies any current SI. Has no anxiety. States "I don't feel like myself", meaning that he feels too good, which for him is confusing. Discussed the aftercare plan of attending [facility]. Will need to follow up on the referral to Care to see when initial appt. can be made and when a prescriber can see him. Talked with the family about support through [facility] and helping to educate other family members. Parents say that Lucien's siblings don't understand his mental health issues. This is something that he and his family will work on in the future, but right now the focus needs to be on Lucien feeling better and focusing on himself. Parents seem very supportive and are happy to have him at home. Discussed discharge for .
[2016-07-15 12:31] VITALS: BP 120/63
--- NOTE | 2016-07-15 13:51 | NUR ---
PT IS COMPLIANT AND COOPERATIVE. MOOD IS STABLE WITH A FULL RANGE OF AFFECT. PT DENIES SI AT THIS TIME, NO COMPLAINTS OFFERED. PT IS PRESENT IN THE COMMUNITY AND INTERACTING WELL WITH PEERS AND STAFF. PT IS ATTENDING GROUPS. VITALS ARE STABLE, APPETITE IS GOOD.
[2016-07-15 16:55] VITALS: BP 135/61
--- NOTE | 2016-07-15 17:36 | CP SOUTH PROGRESS NOTE PSYCH ---
Psych (Inpt) Progress Note Progress Note Progress Note: I discussed this patient's progress to date, current mental status, treatment process in the context of the treatment plan, and discharge planning with staff/ team in the daily morning inpatient team meeting. I also met with the patient myself in individual session. A total of 50 minutes was spent with the patient with more than 50% spent in counseling and/or coordination of care. SUBJECTIVE: "I feel much better since I started the lithium. I don't feel suicidal anymore." OBJECTIVE: Current Medications Sig/Genie Start time Last Medication Dose Route Stop Time Status Admin Bupropion HCl 150 MG 0800 07/13 0800 AC 07/15 PO 0812 [place] Carbonate 450 MG 799,07/14 08 AC 07/15 PO 0812 Risperidone 0.5 MG 08,07/12 220 AC 07/15 PO 08 Risperidone 0.5 MG Q6H PRN 07/12 1645 AC 07/15 PO 1429 Vital Signs Date Time Temp Pulse Resp B/P Pulse O2 O2 Flow FiO2 Ox Delivery Rate 07/15 1655 92 135/61 07/15 1231 92 120/63 07/15 0826 97.3 96 117/64 07/14 2008 97.5 92 127/58 ASSESSMENT: Today I met the patient for the first time, along with social services manager Rabia, and his parents in a family meeting. He reports that the risperidone helps with the racing thoughts, states his mood has elevated since starting lithium 2 days ago, he no longer feels suicidal. Reports tolerating his medications well, to good effect. In the family meeting, the patient and his parents had a nice rapport, parents seemed very supportive. Depression:0/10; Anxiety:0/10 (with 10 the worst.) Denies suicidal ideation, homicidal ideation, auditory hallucinations, visual hallucinations, paranoid ideation. Patient states and also believes that he will not kill himself. Reports sleep has not been very good, however denies nightmares. Reports elevated appetite. Reviewed risks, side effects, and benefits of his medications. We discussed potential kidney and thyroid complications, as well as toxicity with lithium. We discussed side effects including the potential of weight gain, tardive dyskinesia, involuntary muscle movements on risperidone. Patient and his parents verbalized understanding, and he agrees to continue these medications. Speech is well articulated, goal-directed, average in rate, volume and tone. The patient understands the risks/benefits/side effects of the medication and is agreeable to continue taking them. PLAN: [place] level on Friday. Patient is a amenable to attend IOP. Continue with current management as patient is improving. Continue to provide support and encouragement.
[2016-07-15 19:37] VITALS: BP 128/66
--- NOTE | 2016-07-15 21:18 | NUR ---
PT IS CALM, COOPPERATIVE WITH STAFF AND PEERS, AND COMPLINAT WITH UNIT RULES. PT IS IN MILIEU OFTEN, INTERACTING WELL ITH OTHERS. MOOD IS STABLE, AFFECT IS EUTHYMIC TO FULL RANGE, COMMUNICATION IS ORGANIZED AND APPEARS NORMAL IN ALL RESPECTS, AND APPETITE IS NORMAL. PT DENIES SI AT THIS TIME.
[2016-07-16 07:38] VITALS: BP 124/66
--- NOTE | 2016-07-16 11:35 | NUR ---
PT VISIBLE MOST OF THE DAY IN THE MILIEU. HIS GOAL WAS TO ATTEND GROUPS, AND STAY IN THE MILIEU. PT WENT TO BOTH PLANNING MEETING, AND FOCUS GROUP BUT DID NOT ATTEND THE 11:30A GROUP. IN BOTH GROUPS HE DID ATTEND PT ACTIVELY PARTICIPATED. WHILE IN THE MILIEU PT HAS BEEN COOPERATIVE, AND PLEASANT. HE DENIES THOUGHTS OF HURTING SELF WHEN ASKED.
[2016-07-16 12:36] VITALS: BP 122/71
--- NOTE | 2016-07-16 13:46 | SOCIAL WORKER PROG NOTE PSYCH ---
Social Work Progress Note Progress Note Left a message for Michelle at [facility] in [place] [phone]. waiting to hear back to schedule an intake for [facility].
--- NOTE | 2016-07-16 16:11 | SOCIAL WORKER PROG NOTE PSYCH ---
Social Work Progress Note Progress Note Pt continues to be hopeful, and reports his anxiety has decreased. Pt is reflective and trying to make small positive steps in the right direction. Was happy his came to visit but didn't stay too long, he expressed feeling happy that his parents get to know his children now that he is staying there. He wants to do the [facility] IOP as he continues to manage his symptoms of mood disorder.
[2016-07-16 16:15] VITALS: BP 115/68
--- NOTE | 2016-07-16 17:49 | CP SOUTH PROGRESS NOTE PSYCH ---
Psych (Inpt) Progress Note Progress Note Progress Note: I discussed this patient's progress to date, current mental status, treatment process in the context of the treatment plan, and discharge planning with staff/ team in the daily morning inpatient team meeting. I also met with the patient myself in individual session. A total of 15 minutes was spent with the patient with more than 50% spent in counseling and/or coordination of care. SUBJECTIVE: "Mentally I feel good." OBJECTIVE: Current Medications Sig/Genie Start time Last Medication Dose Route Stop Time Status Admin Bupropion HCl 150 MG 0800 07/13 0800 AC 07/16 PO 0745 [place] Carbonate 450 MG 08,07/14 0800 AC 07/16 PO 0745 Risperidone 0.5 MG 0800,07/12 2200 AC 07/16 PO 0745 Risperidone 0.5 MG Q6H PRN 07/12 1645 AC 07/15 PO 1429 Vital Signs Date Time Temp Pulse Resp B/P Pulse O2 O2 Flow FiO2 Ox Delivery Rate 07/16 1615 100 115/68 07/16 1236 90 122/71 07/16 0738 96.7 87 124/66 07/15 1937 98.0 104 128/66 ASSESSMENT: Patient reports feeling well, offers no complaints. States that he believes that he will be safe and ready for discharge tomorrow. States his protective factors against suicide are his children. Feels safe returning to his parents home, "I know my parents are there for me." Depression:0/10; Anxiety:0/10 (with 10 the worst.) Denies suicidal ideation, homicidal ideation, auditory hallucinations, visual hallucinations, paranoid ideation. Patient states and also believes that he will not kill himself. States he has not had suicidal thoughts since he's been in the hospital. Reports sleeping well at night. Speech is well articulated, goal-directed, average in rate, volume and tone. Calm, cooperative, pleasant and logical. Alert and oriented 3. The patient understands the risks/benefits/side effects of the medication and is agreeable to continue taking them. PLAN: We will discuss possible discharge tomorrow in team meeting tomorrow. Patient states that he believes he will be safe and ready for discharge. [place] level tomorrow morning. Continue with current management as patient is improving. Continue to provide support and encouragement.
[2016-07-16 19:47] VITALS: BP 129/64
--- NOTE | 2016-07-16 20:50 | NUR ---
PT IS CALM, COOPERATIVE WITH STAFF AND PEERS, AND COMPLIANT WITH UNIT RULES. PT IS SLIGHTLY WIHTDRAWN AND ISOLATIVE, SPENDING A GOOD DEAL OF TIME IN PT ROOM, OUT OF MILIEU, AND WHEN APPEARING IN MILIEU WILL BE SPENDING THE MAJORITY OF TIME TO SELF, READING. MOOD IS STABLE, AFFECT APPEARS FULL RANGE, COMMUNICATION IS ORGANIZED AND NORMAL IN ALL RESPECTS, AND APPETITE IS NORMAL. PT DENIES SI AT THIS TIME.
[2016-07-17 07:54] VITALS: BP 110/58
--- NOTE | 2016-07-17 10:37 | NUR ---
PT IS SCHEDULED FOR D/C TODAY TO [facility]. HE REPORTS HIS MOOD HAS IMPROVED AND HE DENIES ANY THOUGHTS OF SUICIDE OR SELF HARM. HE IS COMPLIANT WITH HIS MED REGIME AND THE FOLLOW UP PLAN IS FOR PT TO BE SEEN FOR MEDS AT [facility] WITH A BRIDGE APPOINTMENT AT [facility] PT.PT IS GIVEN EDUCATION R/T MANAGING HIS BIPOLAR D/O AND ON SUICIDE PREVENTION
[2016-07-17] MEDS ORDERED: LITHIUM CARBON150 M1 PO (11:47)
--- NOTE | 2016-07-17 11:48 | SOCIAL WORKER PROG NOTE PSYCH ---
Social Work Progress Note Progress Note Talked to Kat at [facility] in [place]. Lucien can be seen for intake on 07/30 at 1:30pm. Medication evaluation will be 08/12 with Phyllis Bledsoe APRN at 10: 45pm. Lucien will have a bridge appt. at [facility] on 07/29 10am with Sergio Archuleta APRN. Lucien is feeling well. Ready for discharge today. Had a good night sleep and pleasant dreams. Denies any SI. Looking to spend time volunteering possibly with his Mom at a local [employer] and says he spoke with his Brother and he is looking to spend time with him as well. Discussed getting into a routine and having some small goals planned for each day. Lucien will have his Mom pick him up today.
--- NOTE | 2016-07-17 11:50 | CP SOUTH PROGRESS NOTE PSYCH ---
Psych (Inpt) Progress Note Progress Note Note opendc in error. myself in individual session. A total of 30 minutes was spent with the patient with more than 50% spent in counseling and/or coordination of care. SUBJECTIVE: OBJECTIVE: Current Medications Sig/Genie Start time Last Medication Dose Route Stop Time Status Admin Bupropion HCl 150 MG 0800 07/13 0800 AC 07/17 PO 0749 [place] Carbonate 450 MG 08,07/14 08 AC 07/17 PO 0836 Risperidone 0.5 MG 08,07/12 220 AC 07/17 PO 0749 Risperidone 0.5 MG Q6H PRN 07/12 1645 AC 07/15 PO 1429 Laboratory Tests 07/17 0604 Toxicology [place] (0.6 - 1.2 mmol/L) 0.4 L Vital Signs Date Time Temp Pulse Resp B/P Pulse O2 O2 Flow FiO2 Ox Delivery Rate 07/17 0754 96.8 89 110/58 07/16 1947 97.8 100 129/64 07/16 1615 100 115/68 07/16 1236 90 122/71 ASSESSMENT: Depression:[default value]/10; Anxiety:[default value]/10 (with 10 the worst.) [default value] suicidal ideation, homicidal ideation, auditory hallucinations, visual hallucinations, paranoid ideation. Speech is well articulated, goal-directed, average in rate, volume and tone. The patient understands the risks/benefits/side effects of the medication and is agreeable to continue taking them. PLAN: Lab slip given for repeat lithium level. Continue with current management as patient is improving. Continue to provide support and encouragement.
[2016-07-17] MEDS ORDERED: RISPERDAL1 M1 PO (12:08)
[2016-07-17] MEDS ORDERED: LITHIUM CARBON450 M1 PO (12:09)
--- NOTE | 2016-07-17 12:09 | DISCHARGE SUMMARY REPORT-PSYCH ---
Visit Information Visit Dates/Diagnosis' Admission Date: 07/11/16 Discharge Date: 07/17/16 Reason for Admission: This is the 2nd [facility] admission since 03/2013 for a 41-year-old father of 3 children, now seperated from his . He is currently residing with his parents in [place]. He had begun to experience suicidal ideation/impulses recently in the context of intensifying marital discord. Psy Discharge Primary Diag: Major Depressive d/o, recurrent, severe, with suicidal ideation. Psy Discharge Secondary Diag: r/o bipolar d/o; r/o OCD; juvinile polyposis syndrome; anxiety, anemia. Hospital Course Significant Lab Findings: Lab ALT 30 U/L 07/11/16 1617 AST 14 U/L L 07/11/16 1617 TSH 2.820 uIU/mL 07/12/16 0604 Absolute Basophils 0.1 /CUMM 07/11/16 1617 Absolute Eosinophils 0.2 /CUMM 07/11/16 1617 Absolute Granulocytes 7.2 /CUMM H 07/11/16 1617 Absolute Lymphocytes 1.6 /CUMM 07/11/16 1617 Absolute Monocytes 0.8 /CUMM H 07/11/16 1617 Basophils % 0.7 % 07/11/16 1617 Eosinophils % 2.5 % 07/11/16 1617 Gran % 72.7 % 07/11/16 1617 Hct 33.0 % L 07/11/16 1617 Hgb 10.0 G/DL L 07/11/16 1617 Lymphocytes % 16.4 % L 07/11/16 1617 MCH 19.4 PG L 07/11/16 1617 MCV 63.8 FL L 07/11/16 1617 MPV 7.1 FL L 07/11/16 1617 Monocytes % 7.7 % 07/11/16 1617 Plt Count 268 /CUMM 07/11/16 1617 RBC 5.18 /CUMM 07/11/16 1617 RDW 19.1 % H 07/11/16 1617 WBC 10.0 /CUMM 07/11/16 1617 [place] 0.4 mmol/L L 07/17/16 0604 Course Complications: As per H&P: " Patient is recently diagnosed to have juvenile polyposis with Gene testing, the tumor at GE junction. He was being evaluated for anemia with colonoscopy and upper GI scope he in March 2015 when found to have multiple polyps eventually pathology and genetic testing was positive and was referred to [facility] for surgical evaluation. Patient has chronic iron deficiency anemia. He denies chest pain, shortness of breath, abdominal pain, URI symptoms, headache, nausea, vomiting, diarrhea, blood in vomiting, bloody diarrhea, neurological weakness, loss of consciousness, palpitations. Patient endorses some dyspnea on exertion and tiredness chronically secondary to his iron deficiency anemia. Patient follows with Nia Garcia DO as PCP." Consultations: Patient was seen for admission history and physical by Dr. Branch. Please refer to the H&P for additional information. Allergies: Coded Allergies: almond (ANAPHYLAXIS 07/11/16) Uncoded Allergies: FRUITS (ANAPHYLAXIS- STONE FRUITS 07/11/16) Hospital Course/TX Response: Patient was monitored on the unit for safety, depression, suicidal ideation and mood stability. He was medicated with lithium for mood stability and suicidal thoughts, risperidone for clear thoughts and mood stability, and wellbutrin for depression, which is being well tolerated, to good effect. Patient stated "I feel much better since I started the lithium. I don't feel suicidal anymore." A family meeting was held with his parents, who offered their support and encouragement. The patient is living with his parents, in their home, at this time. Patient stated " "I feel for the first time that I'm able to open up to my parents." Today, the day of discharge, he reports that he is "feeling good", offers no complaints, tolerating his medications well. States he feels safe and ready for discharge. He said he is eager to continue with therapy. Looking forward to establishing "contact with other people. I would like to volunteer at the [employer] with my mother." Depression:0/10; Anxiety:0/10 (with 10 the worst.) Denies suicidal ideation, homicidal ideation, auditory hallucinations, visual hallucinations, paranoid ideation. Patient states and also believes that he will not kill himself. Reports sleeping well at night, his appetite is good. Speech is well articulated, goal-directed, average in rate, volume and tone. The patient understands the risks/benefits/side effects of the medication and is agreeable to continue taking them. Patient reports tolerating his medications well, without complaint. States that he feels safe and ready for discharge. Discharge HBIPS - Tobacco Use Treatment Offered Post DC Medications Offered: NA-No Tob Use >30 days Post DC Tobacco Treatment Plan: NA-No Tobacco use >30days - EtOH/Drug Use D/O Treatment Offered Post DC Medications Offered: NA-No EtOH/Drug Use D/O Post DC EtOH/SubAbuse [place] Plan: NA-No EtOH/Drug Use D/O Metabolic Screening - Screen if on a Neuroleptic Medication - Metabolic screening should include: - Blood Pressure, BMI, Glucose or Hgb A1c, & a - Lipid profile from within the past 365 days. Metabolic Screening () Not Applicable, patient not on a neuroleptic. OR ([x]) Patient on a neuroleptic(s) . Enter below results for Glucose or Hemoglobin A1C, and lipid panel if obtained during the last 365 days. BMI: 27.200 Blood Pressure: 125/68 Laboratory Results (If applicable): Lab Cholesterol 162 MG/DL 07/12/16 0604 Cholesterol/HDL Ratio 5 % H 07/12/16 0604 Glucose 94 mg/dL 07/11/16 1617 HDL Cholesterol 31 mg/dL L 07/12/16 0604 Hemoglobin A1c 5.2 % 07/12/16 0604 LDL Cholesterol, Calc 77 mg/dL 07/12/16 0604 Triglycerides 271 mg/dL H 07/12/16 0604 Discharge Instructions General Discharge Information Discharge Medications: Discharge Medications- (Dose, route, freq, indication): START taking these NEW Home Medications: Risperidone Dose: ORAL, TWICE DAILY for Qty: 28 Called in to (Risperdal) 0.5 MG 0.5 [place] CLEAR THOUGHTS Refills: 0 Pharm 1 TABLET Last Taken:07/17/16 Time:0800 [place] Carbonate Dose: ORAL, 0800,2000 for MOOD Qty: 28 Called in to ([place] Carbonate 450 Milligram STABILITY Refills: 0 Pharm 2 ER) 450 MG TABLET.ER Last Taken:07/17/16 Time:0830 [place] Carbonate Dose: ORAL, Every night for Qty: 14 Called in to ([place] Carbonate) 150 Millig[place] MOOD STABILITY Refills: 0 Pharm 2 150 MG CAPSULE TAKE ALONG WITH 450MG TAB EVERY EVENING (TOTAL EVENING DOSE IS 600MG) TO START TONIGHT 07/17/16 CONTINUE taking these Home Medications: Bupropion HCl Dose: ORAL, Every Morning for (Wellbutrin XL) 150 MG 1 Tablet MENTAL HEALTH TAB.ER.24H Last Taken:07/17/16 Time:0800 1: [id number], [address] [place] [address] 2: [facility] [place] [address], [address] [place] [address] [phone] Your Preferred Pharmacy [id number] [phone] Multiple Neuroleptics: ([x]) Not Applicable OR Document below three failed attempts at monotherapy, or a plan to taper to monotherapy, or augmentation of Clozapine. () Patient's Diet: Regular Patient's Activity: No restrictions DC Disposition: Patient is returning to his parent's home, where he has been living. Recommendations: Lab slip provided for repeat lithium level. Patient will follow up at [facility]. Follow up at [facility], and [facility]. Referred To: Post Discharge Referrals [facility] Service Date: 07/30/[address] [place] [address] [facility] [place] [id number] Notes: [facility] Intake appt. [address] 07/30/16 1:30pm [phone] [facility] Service Date: 08/12/[address] [place] [address] [facility] [place] [address] Notes: [facility] appt. with June Bledsoe APRN 08/12/16 10:45am [phone] OUTPATIENT PSYCHIATRY Service Date: 07/29/16 [address] [place] [address] Notes: [facility] [address], [place] 07/29/16 10am with Issa Diaz BOLT HEADER [phone] Copies To: [facility]; ISSA DIAZ APRN; ISAAC CHICAS APRN
[2016-07-17 12:27] VITALS: BP 125/68
--- NOTE | 2016-07-17 12:40 | CP SOUTH PROGRESS NOTE PSYCH ---
Psych (Inpt) Progress Note Progress Note Progress Note: I discussed this patient's progress to date, current mental status, treatment process in the context of the treatment plan, and discharge planning with staff/ team in the daily morning inpatient team meeting. I also met with the patient myself in individual session. A total of 30 minutes was spent with the patient with more than 50% spent in counseling and/or coordination of care. SUBJECTIVE: "I feel for the first time that I'm able to open up to my parents." OBJECTIVE: Current Medications Sig/Genie Start time Last Medication Dose Route Stop Time Status Admin Bupropion HCl 150 MG 0800 07/13 0800 AC 07/17 PO 0749 [place] Carbonate 450 MG 799,07/14 0800 AC 07/17 PO 0836 Risperidone 0.5 MG 08,07/12 2200 AC 07/17 PO 0749 Risperidone 0.5 MG Q6H PRN 07/12 1645 AC 07/15 PO 1429 Laboratory Tests 07/17 0604 Toxicology [place] (0.6 - 1.2 mmol/L) 0.4 L Vital Signs Date Time Temp Pulse Resp B/P Pulse O2 O2 Flow FiO2 Ox Delivery Rate 07/17 1227 91 125/68 07/17 0754 96.8 89 110/58 07/16 1947 97.8 100 129/64 07/16 1615 100 115/68 ASSESSMENT: Patient reports that he is "feeling good", offers no complaints, tolerating his medications well. States he feels safe and ready for discharge. He said he is eager to continue with therapy. Looking forward to establishing "contact with other people. I would like to volunteer at the [employer] with my mother." Depression:0/10; Anxiety:0/10 (with 10 the worst.) Denies suicidal ideation, homicidal ideation, auditory hallucinations, visual hallucinations, paranoid ideation. Patient states and also believes that he will not kill himself. Reports sleeping well at night, his appetite is good. Speech is well articulated, goal-directed, average in rate, volume and tone. The patient understands the risks/benefits/side effects of the medication and is agreeable to continue taking them. PLAN: Patient will be discharged with lithium orders for 450mg in the morning and 600 mg at night. Lab slip provided for repeat lithium level. Discharge today, will be living with his parents, will follow-up at [facility] with bridging appointments at [facility]. Continue with current management as patient is improving. Continue to provide support and encouragement.
== END 2016-07-17 13:40 | DRG 885 ==
LOC: ERH 15:42 → CP SOUTH 19:28 → ERHI 19:28 → EDBEDREQ 23:00 → CP SOUTH 23:51
PROVIDERS: Emergency Medicine; Student in an Organized Health Care Education/Training Program; ADMIT Psychiatry & Neurology Psychiatry
DX: F33.3 Major depressive disorder, recurrent, severe with psychotic symptoms (principal); D64.9 Anemia, unspecified; F41.9 Anxiety disorder, unspecified
CPT/HCPCS: 36415; 80307; 93005; 93010; G0463; G0480